=== PATIENT | female | born 1945 | race Caucasian/White ===

== ENCOUNTER 2018-05-17 09:36 | Outpatient (CLI) | payer MEDICARE ==
--- NOTE | 2018-05-17 10:43 | RAD ---
PA AND LATERAL CHEST: HISTORY: Cough. COMPARISON: Portable chest of 05/05/2015. FINDINGS: The lungs are well aerated and appear clear. No infiltrate identified. Vascular markings are normal . The heart and mediastinum appear unremarkable. The osseous structures are unremarkable. There is mild anterior wedging of an upper thoracic vertebra, which does not appear acute. IMPRESSION: 1. No evidence of infiltrate. 2. No significant interval change. POS: [facility]
== END 2018-05-17 09:37 | disposition home or self-care (01) ==
LOC: RAD-FRANK 09:36
PROVIDERS: ATTEND Nurse Practitioner Family
DX: R05 Cough (principal)
CPT/HCPCS: 71046